=== PATIENT | male | born 1995 | race American Indian/Alaskan Native ===

== ENCOUNTER 2017-11-13 12:17 | Emergency (ER) | payer SELFPAY ==
[2017-11-13 12:39] VITALS: BP 115/48
== END 2017-11-13 12:45 | disposition left against medical advice (07) ==
LOC: ED 12:17
DX: R21 Rash and other nonspecific skin eruption (principal); Z53.21 Procedure and treatment not carried out due to patient leaving prior to being seen by health care provider

== ENCOUNTER 2018-09-11 19:42 | Emergency (ER) | payer OTHER ==
[2018-09-11] MEDS ORDERED: NACL 0.9% 1000 ML 1,000 ML IV ONE ×2 (20:47→22:43)
[2018-09-11 20:58] LABS: Basophils % (Auto) 0.4 % (0.0-1.8); Eosinophils # (Auto) 0.2 K/mm3 (0.0-0.4); Hematocrit 44.2 % (35.5-45.6); Lymphocytes # (Auto) 1.6 K/mm3 (1.2-5.4); Lymphocytes % (Auto) 26.5 % (13.4-35.0); Mean Corpuscular HGB Conc 34 % (32-34); Mean Corpuscular Volume 85 fl (84-94); Monocytes # (Auto) 0.8 K/mm3 (0.0-0.8); Monocytes % (Auto) 12.7 % (0.0-7.3); Platelet Count 329 K/mm3 (140-440); Red Blood Count 5.17 M/mm3 (3.65-5.03); Red Cell Distribution Width 14.2 % (13.2-15.2)
--- NOTE | 2018-09-11 20:58 | Emergency Department Report ---
ED Psych HPI - General Chief Complaint: Psych Stated Complaint: MH EVAL Time Seen by Provider: 09/11/18 20:26 Source: EMS Mode of arrival: Stretcher - History of Present Illness Initial Comments: Patient is a 23-year-old -[place] male who has a past history of bipolar disorder who has been off his meds for several weeks. Patient was brought in by paramedics and his mother who stated the patient was having erratic behavior. Patient was found in his garage agitated rambling strange movements. Patient was naked and acting appropriately. Patient had to be given 5 mg of Versed 5 mg of Haldol and 50 of Benadryl to be transported here to the emergency department. Patient is unable to give any history at this time secondary to sedation. - Related Data Previous Rx's Medication Instructions Recorded Last Taken Type Azithromycin [Zithromax] 250 mg PO QDAY #6 tablet 12/03/15 Unknown Rx Fluticasone [Flonase] 1 spray NS QDAY #1 bottle 12/03/15 Unknown Rx Ibuprofen [Motrin] 800 mg PO Q8HR PRN #12 tablet 12/03/15 Unknown Rx predniSONE [Deltasone] 20 mg PO QDAY #5 tab 12/03/15 Unknown Rx Allergies Allergy/AdvReac Type Severity Reaction Status Date / Time peanut Allergy Swelling Verified 12/03/15 11:09 ED Review of Systems ROS: Stated complaint: MH EVAL Other details as noted in HPI Comment: Unobtainable due to pts medical conditions ED Past Medical Hx - Past Medical History Hx Psychiatric Treatment: Yes (ADHD/ DEPRESSION/ BIPOLAR) Hx Asthma: Yes - Social History Smoking Status: Current Every Day Smoker Substance Use Type: Prescribed - Medications Home Medications: Home Medications Medication Instructions Recorded Confirmed Last Taken Type Azithromycin [Zithromax] 250 mg PO QDAY #6 tablet 12/03/15 Unknown Rx Fluticasone [Flonase] 1 spray NS QDAY #1 bottle 12/03/15 Unknown Rx Ibuprofen [Motrin] 800 mg PO Q8HR PRN #12 tablet 12/03/15 Unknown Rx predniSONE [Deltasone] 20 mg PO QDAY #5 tab 12/03/15 Unknown Rx ED Physical Exam - General Limitations: No Limitations General appearance: in no apparent distress, lethargic - Head Head exam: Present: atraumatic, normocephalic - Eye Eye exam: Present: normal appearance - ENT ENT exam: Present: mucous membranes dry - Neck Neck exam: Present: normal inspection - Respiratory Respiratory exam: Present: normal lung sounds bilaterally. Absent: respiratory distress, wheezes, rales, rhonchi, stridor, chest wall tenderness - Cardiovascular Cardiovascular Exam: Present: regular rate (100 at exam), normal rhythm, normal heart sounds. Absent: systolic murmur, diastolic murmur, rubs, gallop - GI/Abdominal GI/Abdominal exam: Present: soft, normal bowel sounds. Absent: distended, tenderness, guarding, rebound - Rectal Rectal exam: Present: deferred - Extremities Exam Extremities exam: Present: normal inspection - Back Exam Back exam: Present: normal inspection - Neurological Exam Neurological exam: Present: alert, altered - Psychiatric Psychiatric exam: Present: normal affect, normal mood - Skin Skin exam: Present: warm, dry, intact, normal color. Absent: rash ED Course Vital Signs 09/11/18 09/11/18 20:08 21:03 Pulse Rate 120 H Respiratory 18 16 Rate Blood Pressure 170/100 O2 Sat by Pulse 100 Oximetry ED Medical Decision Making - Lab Data Result diagrams: 09/11/18 20:50 09/11/18 20:50 - Medical Decision Making She initially was sedated upon arrival. Patient after several hours of monitoring did wake up and again was behaving inappropriately. Patient was running around the emergency Department new. Patient did not seem to be aware of what he was actually doing. Patient placed on a 1013 and the patient is awaiting acceptance Critical care attestation.: If time is entered above; I have spent that time in minutes in the direct care of this critically ill patient, excluding procedure time. ED Disposition Clinical Impression: Inappropriate behavior, Manic behavior, Encounter for psychiatric assessment Disposition: [id number] PSY HOSP/PSY UNIT Is pt being admited?: No Does the pt Need Aspirin: No Condition: Stable Referrals: PRIMARY CARE,MD [Primary Care Provider] - 3-5 Days
[2018-09-11 21:23] LABS: Alanine Aminotransferase 14 units/L (7-56); Albumin 4.9 g/dL (3.9-5); BUN/Creatinine Ratio 11; Blood Urea Nitrogen 14 mg/dL (9-20); Calcium 9.7 mg/dL (8.4-10.2); Hemolysis Index 4
[2018-09-11] MEDS ORDERED: GEODON IM ONE (23:32)
[2018-09-12] MEDS ORDERED: NACL 0.9% 1000 ML 1,000 ML IV ONE (02:15)
[2018-09-12] MEDS ORDERED: NACL 0.9% 1000 ML 1,000 ML ONE (02:17)
[2018-09-12] MEDS ORDERED: GEODON IM ONE ×2 (05:19→05:23)
[2018-09-12 07:20] LABS: Bilirubin,Urine NEG (Negative); Blood,Urine SM (Negative); Color,Urine Yellow (Yellow); Mucus,Urine FEW /HPF; Protein,Urine <15 mg/dL mg/dL (Negative); RBC,Urine < 1.0 /HPF (0.0-6.0); Urobilinogen,Urine < 2.0 mg/dL (<2.0)
[2018-09-12 07:29] LABS: Amphetamine Screen,Urine PRESUMPTIVE NEGATIVE; Cannabinoid Screen,Urine PRESUMPTIVE NEGATIVE; Cocaine Screen,Urine PRESUMPTIVE NEGATIVE; Methadone Screen,Urine PRESUMPTIVE NEGATIVE; Opiate Screen,Urine PRESUMPTIVE NEGATIVE
[2018-09-12 07:53] LABS: Benzodiazepines Screen,Urine PRESUMPTIVE POSITIVE
--- NOTE | 2018-09-12 10:23 | Consultation ---
Addendum entered and electronically signed by ERIKA POPE NP 09/12/18 13:57: Impression: Informed the patient's assigned nurse that the patient's CK is trending upward. Original Note: History of Present Illness - Reason for Consult Consult date: 09/12/18 Reason for consult: Mental Health Evaluation Requesting physician: NELY KEENE - Chief Complaint Chief complaint: "The patient refuse to talk" - History of Present Psychiatric Illness 23-year-old -[place] male who presented to the ER for bizarre behavior per his mother. Today the patient us calm, but refused to talk during the assessment. Per the staff, the patient had to be given PRN medication for acute agitation. Medications and Allergies Allergies Allergy/AdvReac Type Severity Reaction Status Date / Time peanut Allergy Swelling Verified 12/03/15 11:09 Home Medications Medication Instructions Recorded Confirmed Last Taken Type Azithromycin [Zithromax] 250 mg PO QDAY #6 tablet 12/03/15 Unknown Rx Fluticasone [Flonase] 1 spray NS QDAY #1 bottle 12/03/15 Unknown Rx Ibuprofen [Motrin] 800 mg PO Q8HR PRN #12 tablet 12/03/15 Unknown Rx predniSONE [Deltasone] 20 mg PO QDAY #5 tab 12/03/15 Unknown Rx Past psychiatric history - Past Medical History Past Medical History: other (Unable to obtain) Past Surgical History: Other (Unable to obtain) - past Psychiatric treatment and history psychiatric treatment history: Unable to obtain a psy hx and fam psy hx. - Social History Social history: lives with family Mental Status Exam - Vital signs Last Vital Signs Temp Pulse 78 09/12/18 06:45 Resp 14 09/12/18 05:00 BP 117/62 09/12/18 08:00 Pulse Ox 100 09/12/18 05:00 - Exam Narrative exam: Unable to complete the MSE because the patient refused to cooperate. Results Result Diagrams: 09/11/18 20:50 09/11/18 20:50 Abnormal lab results 09/11/18 09/11/18 09/11/18 Range/Units 20:50 20:50 20:50 RBC 5.17 H (3.65-5.03) M/mm3 Norton % (Auto) 12.7 H (0.0-7.3) % Glucose 107 H (75-100) mg/dL Total Creatine Kinase (55-170) units/L Total Protein 8.3 H (6.3-8.2) g/dL Salicylates < 0.3 L (2.8-20.0) mg/dL Acetaminophen (10.0-30.0) ug/mL 09/11/18 09/11/18 Range/Units 20:50 20:50 RBC (3.65-5.03) M/mm3 Norton % (Auto) (0.0-7.3) % Glucose (75-100) mg/dL Total Creatine Kinase 1483 H (55-170) units/L Total Protein (6.3-8.2) g/dL Salicylates (2.8-20.0) mg/dL Acetaminophen < 5.0 L (10.0-30.0) ug/mL All other labs normal. Assessment and Plan Assessment and plan: Impression: Today the patient us calm, but refused to talk during the assessment. Per the notes, the patient have not urinated (void). He received 4 NS bolus. CK 1483. Positive for benzos. The patient is in restraints. CK 1914. DDx: UInspecified Psychosis Recommendation/Plan: Continue 1013 and reassess the patient in 24 hours. D/C restraints when not indicated. Dispo: The patient will be referred to inpatient psy services once medically clear. Will staff with Dr Brigid Malcolm.
[2018-09-12] MEDS ORDERED: NACL 0.9% 1000 ML 1,000 ML IV SCH (17:00)
[2018-09-12] MEDS ORDERED: ATIVAN IV ONE (18:29)
[2018-09-12] MEDS ORDERED: ATIVAN ONE (18:32)
[2018-09-13] MEDS ORDERED: NACL 0.9% 1000 ML 1,000 ML IV ONE ×2 (09:51→09:53)
[2018-09-13] MEDS ORDERED: GEODON IM PRN (12:21)
--- NOTE | 2018-09-13 14:29 | Progress Note ---
Subjective - Reason for Consult Consult date: 09/13/18 Reason for consult: Psychiatric Follow-up - Chief Complaint Chief complaint: The patient is verbal but refuses to answer any questions. Appears drowsy. Mental Status Exam - Vital signs Last Vital Signs Temp Pulse 99 H 09/12/18 16:45 Resp 13 09/12/18 16:45 BP 141/79 09/12/18 16:45 Pulse Ox 100 09/12/18 14:45 - Exam Narrative exam: Unable to assess patient's mental status due to his unwillingness to cooperate. Assessment and Plan Impression: Unable to assess patient. Patient refuses to answer any questions. Patient appears drowsy. Disposition: Patient has been referred to inpatient psychiatric services. Will staff with Dr. Jose Alejandro Malcolm.
[2018-09-13 17:52] VITALS: BP 141/79
== END 2018-09-13 18:50 ==
LOC: ED 19:42 → EEVIPCON 19:42 → ED 09-13 18:50
DX: F30.9 Manic episode, unspecified (principal); F90.9 Attention-deficit hyperactivity disorder, unspecified type; M62.82 Rhabdomyolysis; F17.200 Nicotine dependence, unspecified, uncomplicated; F13.20 Sedative, hypnotic or anxiolytic dependence, uncomplicated; J45.909 Unspecified asthma, uncomplicated; Z91.010 Allergy to peanuts; Z79.899 Other long term (current) drug therapy
CPT/HCPCS: 36415; 80053; 80307; 81001; 82550; 84443; 85025; 96361; 96365; 96372; 99285; G0480; J2060; J3486; J7030; 80320